=== PATIENT | female | born 1930 | race Caucasian/White ===

== ENCOUNTER 2018-07-03 09:51 | Emergency (ER) | payer OTHER ==
[~2018-07-03] VITALS: Ht 124.5 cm; Wt 50.3 kg
[~2018-07-03 09:51] MED LIST: ALEVE220 M1 PO; CIPRO500 MG PO; CLARITIN10 M1 PO; FAMOTIDINE20 MG PO; PERCOCET 5/3251 TAB PO; TRAM1TAB98 PO; TUSSI PRES-B L120 M1 PO; ULTRACET PO
== END 2018-07-03 15:08 | disposition home or self-care (01) ==
LOC: ER 09:51
DX: J22 Unspecified acute lower respiratory infection (principal)